=== PATIENT | male | born 1980 | race Hispanic/Latino ===

== ENCOUNTER 2024-06-30 05:12 | Emergency (ER) | payer SELFPAY ==
--- NOTE | ~2024-06-30 | CT_ITS ---
CT of the Abdomen and Pelvis: Indication: Abdominal pain Technique: 2.5 mm axial scans were obtained through the abdomen and pelvis following intravenous adm inistration of 100 cc of Omnipaque 350. Dose reduction technique was used on this scan by utilizing a utomated exposure control and iterative reconstruction technique. The dose-length product (DLP) was 5 21.68 mGy-cm. Findings: Scans through the lung bases are unremarkable. The liver, spleen, pancreas, gallbladder, adrenals and kidneys are within normal limits. No evidence of aortic aneurysm. No lymphadenopathy. No bowel obstruction or bowel wall thickening. There is no evidence to suggest acute appendicitis. Images through the pelvis were performed. Urinary bladder unremarkable. No pelvic mass seen. No ascit es. Impression: No significant abnormalities seen. Reviewed, dictated and finalized at location . IT RISK ANALYST Impression: No significant abnormalities seen.
--- NOTE | 2024-06-30 05:18 | ECG_ITS ---
Test Date: 2024-06-30 06:00:42 Measurements Intervals [place] Rate: 68 P: 44 DE: 136 QRS: 16 QRSD: 116 T: 8 QT: 400 QTc: 425 Interpretive Statements SINUS RHYTHM INCOMPLETE RIGHT BUNDLE BRANCH BLOCK CONSIDER INFERIOR INFARCT, AGE INDETERMINATE ABNORMAL ECG No previous ECG available for comparison Electronically Signed On 06-30-2024 06:32:47 SEAT [employer]OVER [employer]UTTER by Bob Echavarria D.O.
[2024-06-30 05:20] VITALS: BP 151/97; PULSE 71; RESP 18; TEMP 37.7; O2SAT 100
[2024-06-30] MEDS: ONDANSETRON INJ 4 MG/2 ML VIAL IV PUSH (05:25)
[2024-06-30 05:26] LABS: Basophils Absolute Auto 0.09 K/mm3 (0.00-0.10); Eosinophils Absolute Auto 0.23 K/mm3 (0.02-0.50); Eosinophils Percent Auto 2.6 % (1.0-6.0); Hematocrit 43.2 % (40.0-54.0); Hemoglobin 15.3 g/dL (14.0-18.0); Immature Granulocyte Absolute 0.12 K/mm3 (0.00-0.00); Immature Granulocyte Percent A 1.4 % (0.0-0.0); Lymphocytes Absolute Auto 4.65 K/mm3 (1.10-4.50); Mean Corpuscular HGB Conc 35.4 g/dL (32-36); Mean Corpuscular Hemoglobin 33.3 pg (27.0-31.0); Mean Corpuscular Volume 94.1 fL (78.0-102.0); Mean Platelet Volume 10.5 fl (8.7-11.0); Monocytes Absolute Auto 0.74 K/mm3 (0.10-0.90); Monocytes Percent Auto 8.4 % (2.0-11.0); Neutrophils Absolute Auto 2.95 K/mm3 (1.70-7.20); Neutrophils Percent Auto 33.6 % (50.0-70.0); Platelet Count Result 178 K/mm3 (150-420); Red Blood Count 4.59 M/mm3 (4.70-6.10); Red Cell Distribution Width 11.9 % (11.6-14.4); White Blood Count 8.8 K/mm3 (4.8-10.8)
[2024-06-30] MEDS: KETOROLAC 30 MG/ML VIAL (*BKC) IV PUSH (05:26)
[2024-06-30] MEDS: SODIUM CHLORIDE 0.9% IV 1,000 ML 999 ML IV CONT (05:27)
[2024-06-30] MEDS: Please add drug allergy info to patient profile. 1 EACH XX (05:29)
--- NOTE | 2024-06-30 05:34 | PC.NURSE ---
PATIENT WAS GIVEN URINAL. AWARE THAT URINE SAMPLE IS NEEDED.
--- NOTE | 2024-06-30 05:35 | PC.NURSE ---
RESTLESS ON STRETCHER. GOES FROM LAYING DOWN TO STANDING. PALE, DIAPHORETIC. STATES HE HAS A WEIRD TASTE IN MY MOUTH
[2024-06-30 05:38] LABS: Alanine Aminotransferase 36 U/L (16-63); Alkaline Phosphatase 78 U/L (46-116); Amylase 57 U/L (25-115); Anion Gap 12 mmol/L (4-12); Aspartate Amino Transferase 20 U/L (15-37); Bilirubin,Total 0.5 mg/dL (0.00-1.00); Blood Urea Nitrogen 20 mg/dL (7-18); Calcium 8.6 mg/dL (8.5-10.1); Carbon Dioxide 25 mmol/L (21-32); Chloride 102 mmol/L (98-108); Estimated CRCL calculation 70 ml/min; Estimated Glomerular Filt Rate > 60; Glucose 153 mg/dL (70-99); Lipase 27 U/L (16-77); Osmolality Calculated 293 mOsm/kg (285-295); Potassium 3.2 mmol/L (3.5-5.1); Sodium 139 mmol/L (136-145); Total Protein 6.8 g/dL (6.4-8.2)
--- NOTE | 2024-06-30 05:43 | PC.NURSE ---
MORPHINE WAS PULLED FOR PAIN CONTROL. PATIENT WAS VOMITING AND RETCHING IN ROOM WHILE STANDING. THIS RN WENT INTO THE ROOM WITH THE PAIN MEDICATION. PATIENT STATES I STARTED TO PUKE AND NOW THE PAIN IS BETTER. I DONT NEED THE MEDICINE RIGHT NOW
[2024-06-30 06:20] LABS: Add Urine Microscopic? YES; Appearance Urine Sl Cloudy (Clear); Bilirubin Urine Negative (Negative); Blood Urine 3+ (Negative); Glucose Urine UA Negative (Negative); Ketones Urine Negative (Negative); Leukocyte Esterase Ur Negative LEU/UL (Negative); Nitrate Urine Negative (Negative); Protein Urine 1+ (Negative); Specific Grav Ur 1.025 (1.010-1.020); Urobilinogen Urine 0.2 mg/dL (0.2-1.0); pH Urine 6.5 (5.0-8.0)
--- NOTE | 2024-06-30 06:20 | ED.ABDPAIN ---
HPI - Abdominal Pain General Chief Complaint: Abdominal Pain Stated Complaint: ABDOMINAL PAIN Time Seen by Provider: 06/30/24 05:18 Source: patient Mode of arrival: ambulatory Limitations: no limitations History of Present Illness HPI narrative: Patient is a 43-year-old male with significant past medical history that presents today for abdominal pain. Patient has abdominal pain that was generalized. He does not have any nausea vomiting diarrhea or constipation. He just has abdominal pain that is generalized. Denies any fevers or systemic symptoms. Denies any sick contacts. He has had this abdominal pain for last 2 days. MD elicited complaint: abdominal pain Pertinent past history: none Onset (ago): day(s) Pain Consistency: constant Location: diffuse Severity: moderate Pain scale (0-10): 6 Quality: stabbing Radiation: none Migration to: no migration Exacerbating factors: nothing Relieving factors: nothing Associated symptoms: denies other symptoms Related Data Home Medications Medication Instructions Recorded Confirmed No Home Medications 06/30/24 06/30/24 Allergies Allergy/AdvReac Type Severity Reaction Status Date / Time No Known Allergies Allergy Verified 06/30/24 05:25 Review of Systems Review of Systems: All systems reviewed & are unremarkable except as noted in HPI and below Constitutional: Constitutional: Reports as per HPI Eyes: Eyes: Reports no additional eye complaints ENT: Reports system reviewed and no additional complaints, except as documented Cardiovascular: Cardiovascular: Reports no additional cardiovascular complaints Respiratory: Respiratory: Reports no additional respiratory complaints Gastrointestinal: Gastrointestinal: Reports as per HPI and Reports abdominal pain Genitourinary: Genitourinary: Reports no additional male genitourinary complaints Musculoskeletal: Musculoskeletal: Reports no additional musculoskeletal complaints Integumentary/Breasts: Skin/Breast: Reports system reviewed and no additional complaints, except as docu Neurologic: Reports system reviewed and no additional complaints, except as documented Psychiatric: Psychiatric: Reports no additional psychiatric complaints Endocrine: Endocrine: Reports no additional endocrine complaints Hematologic/Lymphatic: Hematologic/Lymphatic: Reports no additional hematologic/lymphatic complaints Allergic/Immunologic: Allergic/Immunologic: Reports no additional allergic/immunologic complaints Exam Const: General: healthy appearing Nutritional Appearance: well nourished Orientation/consciousness: patient oriented x3 HENMT: Head: normal to inspection Ears: external ears normal Face/Nose/Sinus: Normal external nose present Face and sinus: normal facial exam Eyes: Conjunctivae: conjunctivae normal Pupils: Equal, round and reactive pupils present EOM: EOMs intact bilaterally Neck: Neck: normal visual inspection Chest: Chest palpation & inspection: normal inspection of the chest Resp: Effort & Inspection: normal respiratory effort Auscultation: clear to auscultation bilaterally Cardio: Rate: regular rate Rhythm: regular rhythm GI: GI Palp: Yes Soft to palpation, Yes Tenderness to palpation present (GI), Yes Guarding due to palpation present (GI) and Yes Rebound tenderness present Auscultation: Hyperactive bowel sounds present Back/Spine/Pelvis: Back: no CVA tenderness Skin: General skin exam: normal color Rashes: no rashes Wounds: no wounds Neuro: General: patient oriented x3 Cranial nerves: Yes Nystagmus not present Speech: normal speech Gait exam (Neuro): Normal gait present Extrem: General: normal to inspection Psych: Mental Status: mental status grossly normal Affect: normal affect Attitude: cooperative Course Vital Signs Vital signs: Vital Signs Oxygen Delivery Room Air 06/30/24 05:12 Temperature 99.9 F H 06/30/24 05:20 Pulse Rate 71 06/30/24 05:20 Respiratory Rate 18 06/30/24 05:20 Blood Pressure 103/73 06/30/24 06:31 Pulse Oximetry 97 06/30/24 06:31 Oxygen Delivery Room Air 06/30/24 05:20 MDM - Abdominal Pain MDM Narrative Medical decision making narrative: Patient has had this abdominal pain since yesterday. He states his even worse worsen is very pain for now. He had not vomited until he was here in the ED the knee did on med. He said his stomach fellow bit better after he vomited. He still having the right lower quadrant pain however though. Will do a CT scan of the abdomen pelvis with contrast on him and with him IV fluids and Toradol pain and will base treatment on the CT results when they come back. CT scan negative for any acute findings. Differential Diagnosis Differential diagnosis: Likely abdominal pain, acute appendicitis and diverticulitis Medical Records Attestation: I reviewed the patient's medical records. Lab Data Attestation: I reviewed the patient's lab results. 06/30/24 05:15 06/30/24 05:15 Labs: Lab Results 06/30/24 06/30/24 Range/Units 05:15 06:12 WBC 8.8 (4.8-10.8) K/mm3 RBC 4.59 L (4.70-6.10) M/mm3 Hgb 15.3 (14.0-18.0) g/dL Hct 43.2 (40.0-54.0) % MCV 94.1 (78.0-102.0) fL MCH 33.3 H (27.0-31.0) pg MCHC 35.4 (32-36) g/dL RDW 11.9 (11.6-14.4) % Plt Count 178 (150-420) K/mm3 MPV 10.5 (8.7-11.0) fl Immature Gran % (Auto) 1.4 H (0.0-0.0) % Neut % (Auto) 33.6 L (50.0-70.0) % Lymph % (Auto) 53.0 H (18.0-42.0) % [place] % (Auto) 8.4 (2.0-11.0) % Eos % (Auto) 2.6 (1.0-6.0) % Baso % (Auto) 1.0 (0.0-1.0) % Lymph # (Auto) 4.65 H (1.10-4.50) K/mm3 [place] # (Auto) 0.74 (0.10-0.90) K/mm3 Eos # (Auto) 0.23 (0.02-0.50) K/mm3 Baso # (Auto) 0.09 (0.00-0.10) K/mm3 Abs Immat Gran (auto) 0.12 H (0.00-0.00) K/mm3 Absolute Neuts (auto) 2.95 (1.70-7.20) K/mm3 Absolute Nucleated RBC 0.00 (0.00-0.00) K/mm3 Nucleated RBC % 0.0 (0-0.0) % Sodium 139 (136-145) mmol/L Potassium 3.2 L (3.5-5.1) mmol/L Chloride 102 (98-108) mmol/L Carbon Dioxide 25 (21-32) mmol/L Anion Gap 12 (4-12) mmol/L BUN 20 H (7-18) mg/dL Creatinine 1.14 (0.70-1.30) mg/dL Estim Creat Clear Calc 70 ml/min Estimated GFR > 60 (59 - ) Glucose 153 H (70-99) mg/dL Calculated Osmolality 293 (285-295) mOsm/kg Lactic Acid 2.0 (0.4-2.0) mmol/L Calcium 8.6 (8.5-10.1) mg/dL Total Bilirubin 0.5 (0.00-1.00) mg/dL AST 20 (15-37) U/L ALT 36 (16-63) U/L Alkaline Phosphatase 78 (46-116) U/L Total Protein 6.8 (6.4-8.2) g/dL Albumin 4.0 (3.4-5.0) g/dL Amylase 57 (25-115) U/L Lipase 27 (16-77) U/L Urine Color Light maggie (Yellow) Urine Appearance Sl cloudy A (Clear) Urine pH 6.5 (5.0-8.0) Ur Specific [place] 1.025 H (1.010-1.020) Urine Protein 1+ H (Negative) Urine Glucose (UA) Negative (Negative) Urine Ketones Negative (Negative) Ur Blood (Man) 3+ H (Negative) Urine Nitrate Negative (Negative) Urine Bilirubin Negative (Negative) Urine Urobilinogen 0.2 (0.2-1.0) mg/dL Leukocyte Esterase Rfl Negative (Negative) LJ/UL Urine RBC >75 H (0-2) /hpf Urine WBC None seen (0-3) /hpf Urine Bacteria Trace (None) /hpf Urine Mucus Moderate H /lpf Imaging Data Radiologist's impression: ITS Impressions Abdomen/Pelvis CT 06/30/24 06:31 Impression: No significant abnormalities seen. Discharge Plan Discharge Clinical Impression: Gastroenteritis, Abdominal pain Patient Disposition: Home, Self-Care Condition: Stable Instructions: Gastroenteritis (ED) Prescriptions: No Action No Home Medications Follow-up/Referrals: UNKNOWN,DOCTOR [Primary Care Provider] - Time of Disposition: 06:49
[2024-06-30 06:27] LABS: Bacteria Urine Trace /hpf; Color Urine Light Amber (Yellow); Mucus Urine Moderate /lpf; RBC Urine >75 /hpf (0-2); WBC Urine None seen /hpf (0-3)
[2024-06-30 06:31] VITALS: BP 103/73; O2SAT 97
[2024-06-30] MEDS: POTASSIUM CHLORIDE 20 MEQ ER TABLET 40 MEQ PO (06:34)
[2024-06-30 06:45] VITALS: BP 101/78; O2SAT 98
[2024-06-30 06:51] VITALS: BP 117/73; O2SAT 98
== END 2024-06-30 07:00 | disposition home or self-care (01) ==
PROVIDERS: Emergency Provider Family Medicine
DX: K52.9 Noninfective gastroenteritis and colitis, unspecified (principal)
CPT/HCPCS: 36415; 74177; 80053; 81001; 82150; 83605; 83690; 85025; 93005; 96361; 96374; 96375; 99284; A9270; J1885; J2270; J2405; J7030; Q9967